=== PATIENT | female | born 2000 | race Caucasian/White ===

== ENCOUNTER 2021-06-26 11:30 | Emergency (ER) | payer OTHER ==
[~2021-06-26] VITALS: Ht 157.5 cm; Wt 56.7 kg
[2021-06-26 11:31] VITALS: BP 108/65
--- NOTE | 2021-06-26 11:35 | NUR ---
Patient ambulated to bed 08 with steady/even gait.
--- NOTE | 2021-06-26 11:40 | NUR ---
21 y/o F c/o cold-like symptoms x 2 days. Patient states congestion, SOB, productive cough. States possibly from seasonal allergies causing symptoms. Lung sounds CTA. Denies pain, fever, chills, n/v/d. Reports Tylenol yesterday with relief to symptoms. Denies other OTC medications; sick household members. Bed locked in lowest position, side rails x 1. PMH/Sx/Meds: Denies Allergies: seasonal
[2021-06-26] MEDS ORDERED: GUAI-646 PO (12:03)
[2021-06-26] MEDS ORDERED: IBUP-2230 PO (12:03)
--- NOTE | 2021-06-26 12:31 | NUR ---
Patient discharged with v/s stable. Written and verbal after care instructions given and explained for Upper Respiratory Infection, Adult. Patient alert, oriented and verbalized understanding of instructions. Ambulatory with steady gait. All questions addressed prior to discharge. ID band removed. Patient advised to follow up with PMD. Rx of Mucinex, Ibuprofen given. Patient educated on indication of medication including possible reaction and side effects. Opportunity to ask questions provided and answered.
== END 2021-06-26 12:31 | disposition home or self-care (01) ==
LOC: MED 11:30
DX: J06.9 Acute upper respiratory infection, unspecified (principal); R05.9 Cough, unspecified; Z79.899 Other long term (current) drug therapy
CPT/HCPCS: 99282

== ENCOUNTER 2023-05-20 21:13 | Emergency (ER) | payer OTHER ==
[~2023-05-20] VITALS: Ht 154.9 cm; Wt 55.8 kg
[~2023-05-20 21:13] MED LIST: IBUP-2230 PO; MUC600 PO
[2023-05-20 21:23] VITALS: BP 109/59; PULSE 69; RESP 18; TEMP 96.8; O2SAT 98
== END 2023-05-20 23:21 | disposition left against medical advice (07) ==
LOC: MED 21:13
DX: L50.9 Urticaria, unspecified (principal); Z53.21 Procedure and treatment not carried out due to patient leaving prior to being seen by health care provider
CPT/HCPCS: 99281